=== PATIENT | female | born 1965 | race African-American/Black ===

== ENCOUNTER 2025-02-21 11:03 | Emergency (ER) | payer BC, OTHER ==
[~2025-02-21] VITALS: Ht 175.3 cm; Wt 108.4 kg
[~2025-02-21 11:03] MED LIST: ALBUTEROL IH; ALBUTEROL1.25 MG/3 NEB; ARNUITY ELLIPT50 MCG IH; AZITHROMYCIN250 MG PO; BENZONATATE100 MG PO; BUMETANIDE1 MG PO; CARVEDILOL12.5 MG PO; CYCLOBENZAPRINE10 MG PO; ENTRESTO 97 MG1 EACH PO; GABAPENTIN300 MG PO; GLIMEPIRIDE4 MG PO; JARDIANCE10 MG SC; MEDROL4 M2 PO; MOUNJARO5 MG/0.5 M SC; NEURONTIN300 MG PO; ROSUVASTATIN CA40 MG PO; SPIRONOLACTONE50 MG PO; TRESIBA FL100 UNIT/1 SC; VARENICLINE TART1 MG PO; [UNRECOGNIZED DRUG - OTHER] PO
[2025-02-21 11:18] VITALS: TEMP 98.3
[2025-02-21] MEDS ORDERED: MUCINEX DM ER1 EACH PO (11:37)
[2025-02-21] MEDS ORDERED: COREG12.5 MG PO (11:37)
[2025-02-21] MEDS ORDERED: ELIQUIS5 MG PO (11:37)
[2025-02-21] MEDS ORDERED: NITROSTAT0.4 MG SL (11:37)
[2025-02-21] MEDS ORDERED: ASPIRIN81 MG PO (11:37)
[2025-02-21] MEDS ORDERED: LYRICA75 MG PO (11:37)
[2025-02-21] MEDS ORDERED: VENTOLIN HFA18 GM INH (11:37)
[2025-02-21] MEDS ORDERED: ENTRESTO 24 MG1 EACH PO (11:37)
[2025-02-21] MEDS ORDERED: MELATONIN3 MG PO (11:37)
[2025-02-21] MEDS ORDERED: NAPROSYN500 MG PO (11:37)
[2025-02-21 11:42] LABS: BASOPHILS % 0.5 % (0.0-1.0); EOSINOPHILS # (AUTO) 0.1 (0.0-0.4); EOSINOPHILS % 1.5 % (0.0-6.0); HEMATOCRIT 47.4 % (34.2-44.1); HEMOGLOBIN 15.1 g/dL (12.0-16.0); LYMPHOCYTES % 17.4 % (18.0-39.1); MEAN CORPUSCULAR HGB CONC 31.9 g/dL (31-35); MEAN CORPUSCULAR VOLUME 84.6 fL (81-99); MONOCYTES # (AUTO) 0.7 (0.2-0.8); MONOCYTES % 11.8 % (4.4-11.3); NEUTROPHILS # (AUTO) 4.1 (2.1-6.9); NEUTROPHILS % 68.5 % (38.7-80.0); PLATELET COUNT 179 x10e3/uL (140-360); RED CELL DISTRIBUTION WIDTH 14.8 % (11.7-14.4); WHITE BLOOD COUNT 5.92 x10e3/uL (4.8-10.8)
[2025-02-21 12:03] LABS: STREPTOCOCCUS GRP A ANTIGEN NEGATIVE (NEGATIVE)
[2025-02-21 12:05] LABS: CORONAVIRUS COVID-19 AG NEGATIVE (NEGATIVE); INFLUENZA A AG NEGATIVE (NEGATIVE); INFLUENZA B AG NEGATIVE (NEGATIVE)
[2025-02-21 12:08] LABS: ALBUMIN 3.3 g/dL (3.5-5.0); ALBUMIN/GLOBULIN RATIO 0.7 (0.8-2.0); ANION GAP 16.1 mmol/L (8-16); BILIRUBIN,TOTAL 0.4 mg/dL (0.2-1.2); CALCIUM 8.7 mg/dL (8.4-10.2); CREATININE, SERUM 1.04 mg/dL (0.57-1.11); POTASSIUM 4.1 mmol/L (3.5-5.1); TOTAL PROTEIN 7.8 g/dL (6.5-8.1)
[2025-02-21 12:18] LABS: TROPONIN I 0.013 ng/mL (0-0.300)
[2025-02-21] MEDS ORDERED: ZYRTEC10 MG PO (12:55)
[2025-02-21] MEDS ORDERED: GUAIFENESIN-DM1 EAC1 PO (12:55)
[2025-02-21] MEDS: DEXAMETHASONE SOD PHOS 10 MG/1 ML VIAL IV ONE (13:13)
[2025-02-21 13:16] VITALS: PULSE 84; RESP 25; O2SAT 95
== END 2025-02-21 13:23 | disposition home or self-care (01) ==
LOC: ER 11:16
DX: R05.9 Cough, unspecified (principal); J20.8 Acute bronchitis due to other specified organisms; I10 Essential (primary) hypertension; E11.65 Type 2 diabetes mellitus with hyperglycemia; E11.40 Type 2 diabetes mellitus with diabetic neuropathy, unspecified; J44.9 Chronic obstructive pulmonary disease, unspecified; I50.9 Heart failure, unspecified; E78.5 Hyperlipidemia, unspecified; J45.909 Unspecified asthma, uncomplicated; Z11.52 Encounter for screening for COVID-19; Z87.442 Personal history of urinary calculi; Z95.810 Presence of automatic (implantable) cardiac defibrillator
CPT/HCPCS: 36415; 71046; 80053; 83518; 83880; 84484; 85025; 87070; 87428; 93005; 99284; J1100